=== PATIENT | female | born 1965 | race Caucasian/White ===

== ENCOUNTER 2017-06-27 10:43 | Day surgery (SDC) | payer OTHER ==
[2017-06-27] MEDS ORDERED: NICOTINE (21 MG/24 HR) PATCH TRANSDERM (13:05)
== END 2017-06-27 13:30 | disposition home or self-care (01) ==
LOC: SDS 10:43
DX: M20.12 Hallux valgus (acquired), left foot (principal); Z53.9 Procedure and treatment not carried out, unspecified reason; I25.10 Atherosclerotic heart disease of native coronary artery without angina pectoris; E11.9 Type 2 diabetes mellitus without complications; I10 Essential (primary) hypertension; Z86.73 Personal history of transient ischemic attack (TIA), and cerebral infarction without residual deficits; J44.9 Chronic obstructive pulmonary disease, unspecified; I73.9 Peripheral vascular disease, unspecified